=== PATIENT | female | born 1985 | race Caucasian/White ===

== ENCOUNTER 2016-08-11 15:57 | Emergency (ER) | payer OTHER ==
[2016-08-11 19:00] LABS: RED BLOOD COUNT 4.43 M/UL (4.00-5.10); WHITE BLOOD COUNT 17.3 K/UL (4.5-11.0)
[2016-08-11 19:17] LABS: BUN/CREATININE RATIO 20 (0-10)
== END 2016-08-11 20:20 | disposition home or self-care (01) ==
LOC: ER1 15:57
PROVIDERS: Physician Assistant Medical
DX: O99.511 Diseases of the respiratory system complicating pregnancy, first trimester (principal); J02.0 Streptococcal pharyngitis; O99.331 Smoking (tobacco) complicating pregnancy, first trimester; F17.210 Nicotine dependence, cigarettes, uncomplicated; Z3A.11 11 weeks gestation of pregnancy
CPT/HCPCS: 36415; 71020; 80048; 81001; 85025; 87081; 87880; 96374; 99283; J2765